=== PATIENT | male | born 1970 | race Caucasian/White ===

== ENCOUNTER → 2019-10-27 15:29 | Outpatient (BNVA) | payer MEDICARE, SELFPAY | PROVIDERS: Family Provider Nurse Practitioner; PCP Nurse Practitioner; Visit Provider Nurse Practitioner | DX: E78.5 Hyperlipidemia, unspecified (principal); I10 Essential (primary) hypertension; Z98.890 Other specified postprocedural states; F41.9 Anxiety disorder, unspecified; K21.9 Gastro-esophageal reflux disease without esophagitis; J41.0 Simple chronic bronchitis; G47.00 Insomnia, unspecified | CPT/HCPCS: 80053; 80061 ==

== ENCOUNTER → 2020-04-27 11:37 | Outpatient (BNVA) | payer MEDICARE, SELFPAY | PROVIDERS: Family Provider Nurse Practitioner; PCP Nurse Practitioner; Visit Provider Nurse Practitioner | DX: I10 Essential (primary) hypertension (principal); Z98.890 Other specified postprocedural states; G47.00 Insomnia, unspecified; K21.9 Gastro-esophageal reflux disease without esophagitis; J30.1 Allergic rhinitis due to pollen; E78.5 Hyperlipidemia, unspecified; Z12.5 Encounter for screening for malignant neoplasm of prostate | CPT/HCPCS: 80053; 80061; G0103 ==

== ENCOUNTER → 2020-08-31 09:17 | Outpatient (BNVA) | payer MEDICARE, SELFPAY | PROVIDERS: Family Provider Nurse Practitioner; PCP Nurse Practitioner; Visit Provider Nurse Practitioner | DX: Z23 Encounter for immunization (principal); I10 Essential (primary) hypertension; E78.5 Hyperlipidemia, unspecified; E55.9 Vitamin D deficiency, unspecified; F41.9 Anxiety disorder, unspecified; F32.9 Major depressive disorder, single episode, unspecified | CPT/HCPCS: 80053; 80061; 82306; 85025 ==

== ENCOUNTER → 2020-09-11 14:59 | Outpatient (BNVA) | payer MEDICARE, SELFPAY | PROVIDERS: Family Provider Nurse Practitioner; PCP Nurse Practitioner; Visit Provider Nurse Practitioner Family | DX: R19.7 Diarrhea, unspecified (principal); K57.90 Diverticulosis of intestine, part unspecified, without perforation or abscess without bleeding | CPT/HCPCS: 80053; 85025 ==

== ENCOUNTER → 2020-09-25 09:03 | Outpatient (BNVA) | payer MEDICARE, SELFPAY | PROVIDERS: Family Provider Nurse Practitioner; PCP Nurse Practitioner; Visit Provider Nurse Practitioner | DX: I10 Essential (primary) hypertension (principal); E78.5 Hyperlipidemia, unspecified; J30.1 Allergic rhinitis due to pollen; K21.9 Gastro-esophageal reflux disease without esophagitis; G47.00 Insomnia, unspecified; Z98.890 Other specified postprocedural states | CPT/HCPCS: 80053; 80061; 85025 ==

== ENCOUNTER → 2021-02-28 10:57 | Outpatient (BNVA) | payer MEDICARE, SELFPAY | PROVIDERS: Family Provider Nurse Practitioner; PCP Nurse Practitioner; Visit Provider Nurse Practitioner Family | DX: E55.9 Vitamin D deficiency, unspecified (principal); I10 Essential (primary) hypertension; F51.01 Primary insomnia; K57.92 Diverticulitis of intestine, part unspecified, without perforation or abscess without bleeding; E78.5 Hyperlipidemia, unspecified | CPT/HCPCS: 80053; 80061; 82306; 84443; 85025 ==

== ENCOUNTER 2021-05-05 08:06 | Emergency (ER) | payer MEDICARE, SELFPAY ==
[2021-05-05 08:11] VITALS: PULSE 92; RESP 14; TEMP 36.6; O2SAT 95; BMI 42.2
--- NOTE | 2021-05-05 08:14 | XRR_ITS ---
PROCEDURE INFORMATION: Exam: XR Left Knee Exam date and time: 05/05/2021 8:14 AM Age: 51 years old Clinical indication: Pain; Left; Patient HX: [place] pop in knee when climbing ladder TECHNIQUE: Imaging protocol: XR Left knee. Views: 3 views. COMPARISON: No relevant prior studies available. FINDINGS: Bones/joints: Old smoothly marginated Harini Schlatter ossicle is noted anterior to the tibial tuberosity. There is a small knee joint effusion. No lipohemarthrosis. No acute fracture or dislocation. No chondrocalcinosis. No significant degenerative changes. Soft tissues: There is mild induration of Hoffa's fat pad. XR/XR knee LT 3V* [id number] IMPRESSION: There is a small knee joint effusion and mild soft tissue edema. No acute bony abnormality.
[2021-05-05 08:17] VITALS: BP 152/98; PULSE 98; RESP 15; O2SAT 95
[2021-05-05] MEDS: HYDROcodone-acetaminophen 5-325 mg Tablet 1 TAB PO (08:42)
[2021-05-05] MEDS: ketorolac 30 mg/mL INJ 60 MG IM (08:42)
--- NOTE | 2021-05-05 08:50 | ED_ITS ---
HPI - Extremity Problem General: Chief complaint: Extremity Injury, Lower Stated complaint: left knee pain Time Seen by Provider: 05/05/21 08:14 History of Present Illness: HPI Narrative: 51-year-old male presents emergency room complaining of left knee pain he twisted the knee while standing on it he felt a popping-like sensation has a difficult time bearing weight since. No previous injury to the knee. No injury to the left ankle or left hip. He did not fall. This occurred last night. MD Complaint: joint swelling and joint pain Onset (ago): hour(s) Pain Consistency: constant Location: left Quality: aching and constant Radiation: none Relieving factors: immobilization and rest Exacerbating factors: range of motion, weight bearing and palpation Associated symptoms: Deny arthralgias, chest pain, fever(s), myalgias, rash or short of breath Review of Systems Const: Denies: fever(s) ENMT: Denies: throat pain, ear or mastoid pain, nasal discharge or nasal congestion Card: Denies: chest pain Resp: Denies: dyspnea, productive cough or non-productive cough GI: Denies: abdominal pain, nausea, vomiting, hematemesis, coffee ground emesis, diarrhea, constipation, bloating, hematochezia or melena : Denies: flank pain, dysuria, urinary frequency or urinary urgency Skin/Breast: Denies: rash PFSH ED 2 PFSH: Medical History Acid reflux disease Anxiety and depression Current smoker Dyslipidemia Essential (primary) hypertension Insomnia Lumbar radicular pain Seasonal allergic rhinitis due to pollen Vitamin D insufficiency Surgical History History of cholecystectomy 2008 History of colonoscopy 2017 History of hernia repair Bilateral as a child History of shoulder surgery right History of spinal fusion L4-L5 2000 Family History Mother Hypertension Social History Smoking and tobacco status: current every day smoker Second hand smoke exposure: Yes Smoking risk assessment/counseling performed?: Yes Alcohol intake: unknown Desire information about alcohol rehabilitation?: No Counseling given: No Desire information about substance/drug rehabilitation?: No Counseling given: No Adopted: No Caregiver/support person: No Lives independently: Yes Household members: family Housing: House Marital status: Number of children: 2 service: No Current occupational status: disabled History of recent travel: No Current gender identity: Male Physical Exam Const: COMMON NORMALS: no acute distress GENERAL APPEARANCE: cooperative and comfortable ORIENTATION/CONSCIOUSNESS: Yes awake, Yes oriented to person, Yes oriented to place and Yes oriented to time Neck/C-Spine: COMMON NORMALS: no JVD Resp: COMMON NORMALS: normal respiratory effort, No retractions, No use of accessory muscles and clear to auscultation bilaterally AUSCULTATION: clear to auscultation bilaterally Cardio: COMMON NORMALS: no JVD, regular rate, regular rhythm and No murmurs present (Cardio) RATE: regular rate RHYTHM: regular rhythm Extremity: COMMON NORMALS: normal to inspection, capillary refill normal, no clubbing, cyanosis or edema, no calf tenderness and no pedal edema NARRATIVE EXTREMITY EXAM: Moderate joint effusion. Difficult to assess knee due to pain. No pain or discomfort or swelling at the left ankle or left hip. Very limited exam of the knee due to pain. Neuro: SENSORIUM/ORIENTATION: Yes oriented to person, Yes oriented to place and Yes oriented to time Skin: COMMON NORMALS: no rashes or lesions noted GENERAL SKIN EXAM: no rashes or lesions noted Course Vital Signs: Vital signs: Vital Signs Temperature 98 F 05/05/21 08:11 Pulse Rate 98 05/05/21 08:17 Respiratory Rate 15 05/05/21 08:17 Blood Pressure 152/98 05/05/21 08:17 Pulse Oximetry 95 05/05/21 08:17 MDM - Extremity (Nontraumatic) MDM Narrative: Medical decision making narrative: X-ray shows what appears to be an old proximal fibula fracture does not appear to be acute but it is angulated as if there is a previous fracture and it heals slightly out of alignment I do not appreciate a tibial plateau fracture. Radiology overread pending. Commend he follow-up with his primary care within the next week to reevaluate. If still causing issues he may need to have advanced imaging such as an MRI. Discussed this with the patient. Discharge Plan Discharge Patient Disposition: Home Clinical Impression: Knee sprain Condition: Stable Prescriptions: New hydrocodone-acetaminophen 5-325 mg tablet 1 tab PO Q6H PRN (Reason: pain) Qty: 20 RF: 0 diclofenac sodium 75 mg tablet,delayed release (DR/EC) 75 mg PO Q12H PRN (Reason: pain) Qty: 20 RF: 0 No Action aspirin 325 mg tablet 325 mg PO BID RF: 0 Daily Probiotic 2.5 billion cell capsule See Rx Instructions PO DAILY 30 Days Qty: 30 RF: 11 fluticasone propionate [Flonase Allergy Relief] 50 mcg/actuation spray,suspension 1 spray INTRANASAL BID Qty: 48 RF: 1 ciprofloxacin HCl [Cipro] 500 mg tablet 500 mg PO BID 10 Days Qty: 20 RF: 0 metronidazole [Flagyl] 500 mg tablet 500 mg PO TID 10 Days Qty: 30 RF: 0 zolpidem 10 mg tablet 10 mg PO .at bedtime Qty: 30 RF: 5 cholecalciferol (vitamin D3) 50 mcg (2,000 unit) capsule 50 mcg PO DAILY Qty: 90 RF: 4 fenofibrate nanocrystallized 145 mg tablet See Rx Instructions .ROUTE .COMPLEX Qty: 90 RF: 0 lisinopril-hydrochlorothiazide 10-12.5 mg tablet 1 tab PO DAILY Qty: 90 RF: 1 omeprazole 20 mg capsule,delayed release(DR/EC) 20 mg PO DAILY Qty: 90 RF: 0 Discharge Orders: Discharge ED (Routine); Ordered 05/05/21 Ordered By: Suraj Doty Referrals: Ronen Mccrary, LOAF COUNTERShoshanaC [Primary Care Provider] - Patient Instructions: Opioid Safety Coding Level of Care Code ED Glass Unloading Equipment Tender for Niya Fwd Exam Detailed
== END 2021-05-05 09:30 | disposition home or self-care (01) ==
PROVIDERS: Emergency Provider Family Medicine; PCP Nurse Practitioner
DX: S83.92XA Sprain of unspecified site of left knee, initial encounter (principal); I10 Essential (primary) hypertension; E78.5 Hyperlipidemia, unspecified; F17.200 Nicotine dependence, unspecified, uncomplicated; X50.1XXA Overexertion from prolonged static or awkward postures, initial encounter
CPT/HCPCS: 29530; 73562; 96372; 99283; J1885

== ENCOUNTER → 2021-05-08 14:12 | Outpatient (BNVA) | payer MEDICARE, SELFPAY | PROVIDERS: PCP Nurse Practitioner; Visit Provider Nurse Practitioner Family | DX: M25.562 Pain in left knee (principal); I10 Essential (primary) hypertension; E78.5 Hyperlipidemia, unspecified | CPT/HCPCS: 80053; 80061; 85025 ==

== ENCOUNTER 2021-05-30 07:32 | Outpatient (CLI) | payer MEDICARE, SELFPAY ==
--- NOTE | 2021-05-30 08:00 | MR_ITS ---
WS: [id number] MRI LEFT KNEE HISTORY: M25.562 - Pain in left knee COMPARISON: Knee radiographs 05/05/2021 Anterior cruciate ligament: Intact. Posterior cruciate ligament: Intact. Medial collateral ligament: Increased fluid and irregularity involving the distal MCL. Suspect partia l tear. There is slight separation from the medial tibial metaphysis and increase fluid. No full-thic kness tear. Posterior lateral corner structures: Intact. Medial menisci: Horizontal tear in the posterior horn. Tear extends to the inferior articular surface . There is also a tear at the free edge towards the intercondylar notch with extension of abnormal si gnal extending into the meniscal root. The anterior horn is partially extruded from the joint space. Lateral meniscus: Intact. Normal signal, size and shape. Extensor mechanism: Distal quadriceps tendon and patellar tendons are intact. Fluid and soft tissue: No joint effusion. Moderate-sized lobulated Burgess's cyst. Osseous and articular structures: Patellofemoral compartment: Normal. Medial compartment: Very mild narrowing of the medial compartment. Superficial defects within the car tilage of the femoral condyle and tibial plateau closely associated with the meniscal tear. Lateral compartment: Normal. MR/MR knee LT wo con* [id number] IMPRESSION: 1. Horizontal tear posterior horn medial meniscus with a tear extending to inv olve the medial free edge and extending into the meniscal root. 2. Additional superficial cartilaginous injury in the medial compartment at th e site of the meniscal tear. 3. Mild MCL sprain. 4. Lobulated Burgess's cyst.
== END 2021-05-30 07:33 | disposition home or self-care (01) ==
PROVIDERS: PCP Nurse Practitioner; Visit Provider Nurse Practitioner Family
DX: S83.242A Other tear of medial meniscus, current injury, left knee, initial encounter (principal); S83.412A Sprain of medial collateral ligament of left knee, initial encounter; M71.22 Synovial cyst of popliteal space [Baker], left knee; X58.XXXA Exposure to other specified factors, initial encounter
CPT/HCPCS: 73721

== ENCOUNTER → 2021-06-04 08:06 | Outpatient (BNVA) | payer MEDICARE, SELFPAY | PROVIDERS: PCP Nurse Practitioner; Referring Provider Nurse Practitioner Family; Visit Provider Specialist | DX: M25.562 Pain in left knee (principal) | CPT/HCPCS: 73560; 73565 ==

== ENCOUNTER → 2021-06-11 08:49 | Outpatient (BNVA) | payer MEDICARE, SELFPAY | PROVIDERS: PCP Nurse Practitioner; Visit Provider Specialist | DX: Z20.822 Contact with and (suspected) exposure to COVID-19 (principal); S83.207A Unspecified tear of unspecified meniscus, current injury, left knee, initial encounter; Z01.812 Encounter for preprocedural laboratory examination | CPT/HCPCS: 87635 ==

== ENCOUNTER 2021-06-15 11:03 | Day surgery (SDC) | payer MEDICARE, SELFPAY ==
[2021-06-14 15:24] VITALS: BMI 41.4
[2021-06-15] VITALS (8 sets, daily range): BP systolic 112–138; BP diastolic 72–113; PULSE 75–86; RESP 16–19; TEMP 36.2–36.8; O2SAT 93–96
--- NOTE | 2021-06-15 11:52 | W.PM.OPSUD ---
Surgery/Procedure H&P Update DATE OF PROCEDURE: June 15, 2021 DATE H&P PERFORMED: 06/04/21 PREOP DIAGNOSIS: Left knee medial meniscal tear with cartilaginous injury and MCL sprain PLANNED PROCEDURE: Operation Date: 06/15/21 12:30 Proposed Procedures p Knee Arthroscopy with partial medial menisectomy and debridement 15896(Left) - Becca Merrill MD Related Problem List Diagnoses (1) Acute meniscal tear of left knee: Qualifiers: Encounter type: initial encounter Qualified Code(s): S83.207A - Unspecified tear of unspecified meniscus, current injury, left knee, initial encounter
[2021-06-15] MEDS: acetaminophen 1,000 MG/100 ML PIGGYBACK 400 MG IV (12:30)
[2021-06-15] MEDS: CELEcoxib 200 mg Capsule 400 MG PO (12:30)
[2021-06-15] MEDS: sodium chloride 0.9% 1,000 ML 30 ML IV (12:30)
--- NOTE | 2021-06-15 13:05 | ANES.PREANE2 ---
Pre-Anesthetic Assessment Pre-Anesthetic Assessment: Height/Weight: Height 1.85 m Weight 142.428 kg Temp Pulse Resp BP Pulse Ox 97.1 F L 85 18 138/113 94 06/15/21 11:55 06/15/21 11:55 06/15/21 11:55 06/15/21 11:55 06/15/21 11:55 Preop Diagnosis: Left knee medial meniscal tear with cartilaginous injury and MCL sprain Proposed Procedure: Operation Date: 06/15/21 12:30 Proposed Procedures p Knee Arthroscopy with partial medial menisectomy and debridement 99103(Left) - Becca Merrill MD Was Beta Brittany taken within 24 hours: N/A Was Clonidine taken within 24 hours: N/A Last intake: Intake Last Liquid Date 06/14/21 Last Liquid Time 21:00 Last Solid Date 06/14/21 Last Solid Time 21:00 Last Intake: 11:00 Social: Social History: Tobacco and No alcohol Packs per day: 1 Pack years: 25 Exam: Pre-Anes Outpt Exam: alert, oriented x 3, clear to auscultation bilaterally and regular rate & rhythm Airway: Submandibular: WNL Cervical ROM: WNL MP: 2 History/ROS: No significant complaints Pulmonary: Pulmonary: None reported CV/HEM: CV/HEM: HTN : : None reported Hepatic: Hepatic: None reported GI: GI: None reported Metabolic: Metabolic: None reported Musc/skel: Musc/skel: None reported Neuropsych: Neuropsych: Anxiety and Depression Anesthetic Plan: ASA status: 3 Anesthesia: General Risk of > 500 ml blood loss (7ml/kg in children): No PFSH Anesthesia PFSH: Medical History (Updated 06/04/21 @ 13:21 by Becca Merrill MD) Acid reflux disease Anxiety and depression Current smoker Dyslipidemia Essential (primary) hypertension Insomnia Lumbar radicular pain Seasonal allergic rhinitis due to pollen Vitamin D insufficiency Surgical History History of cholecystectomy 2008 History of colonoscopy 2017 History of hernia repair Bilateral as a child History of shoulder surgery right History of spinal fusion L4-L5 2000 Family History Mother Hypertension Social History Smoking and tobacco status: current every day smoker Second hand smoke exposure: Yes Smoking risk assessment/counseling performed?: Yes Alcohol intake: unknown Desire information about alcohol rehabilitation?: No Counseling given: No Desire information about substance/drug rehabilitation?: No Counseling given: No Adopted: No Caregiver/support person: No Lives independently: Yes Household members: family Housing: House Marital status: Number of children: 2 service: No Current occupational status: disabled History of recent travel: No Current gender identity: Male Data Anesthesia Cardiac Studies: No Data to Display
[2021-06-15] MEDS: midazolam 1 mg/mL INJ 2 mL 2 MG IVP (13:40)
[2021-06-15] MEDS: morphine 4 mg/mL SDV 1 mL XX ×2 (14:29)
--- NOTE | 2021-06-15 15:42 | P.OP_ITS ---
Operative Report Date of procedure: June 15, 2021 Pre-op Diagnosis: Left knee medial meniscal tear with degenerative osteoarthritic change Post-op Diagnosis: Left knee medial and lateral meniscal tears with degenerative osteoarthritic change primarily medial compartment and patellofemoral Procedure Done: Left arthroscopic knee surgery with partial medial and lateral meniscectomies. 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 Medial and lateral meniscal tears Condition: stable Disposition: PACU (Then to same-day surgery for discharge to home) Brief History: This 51-year-old gentleman presented with rather acute onset of left knee pain. He had an MRI which demonstrated irregularity of the medial meniscus. He also had degenerative osteoarthritic change. After discussion, the patient wished to proceed with operative intervention in the form of an arthroscopic debridement. Risks and complications as well as benefits were discussed with him. Consents were signed and questions were answered preoperatively. Procedure: Patient was brought to the operating theater and after undergoing adequate general anesthesia per LMA, ASA 3, the patient's left lower extremity was p repped and draped in usual fashion utilizing DuraPrep. A tourniquet was placed high on the leg prior to prepping and draping. The tourniquet was elevated prior to commencement of the surgical procedure to 250 mmHg. Total tourniquet time was 52 minutes. Elevation followed prepping and exsanguination. Prior to commencement of the surgical procedure, a surgical pause was performed. At the time of the surgical pause, we identified the site and side of surgery. We also confirm the patient's identity and appropriate and timely administration of preoperative antibiotics, Ancef 2 g. Preoperative surgical markings were also visualized at this time. Standard arthroscopic portals were utilized including superolateral, inferomedial, and inferolateral portals. The examination commenced in the suprapatellar pouch area where the patient was noted to have chondromalacia of the significant degree of the trochlear groove. The arthroscope was then passed in the medial compartment where there was noted to be degenerative tearing of the medial meniscus including the anterior and posterior horns. Additionally, there was copious synovitis precluding good visualization until it was debrided. The arthroscope was then passed across the notch area where anterior cruciate ligament was visualized and found to be intact. The scope was passed into the lateral compartment with the knee in a [id number] position. Lateral meniscus was noted to have inner rim tearing, and changes consistent with degenerative tearing. There was also slight chondromalacia of the lateral tibial plateau. The meniscus was addressed with a combination of basket forceps, the intra-articular shaver, and the heat wand. In this manner, we were able to debride the inner rim of the meniscus. Once lateral meniscus had been thus prepared it was palpated and found to be intact and not displaceable into the knee joint. Scope was then returned to the medial compartment where similarly, the medial meniscus was addressed with the heat wand and the intra- articular shaver. The meniscus was palpated and found to be not displaceable into the knee joint. A chondroplasty was performed of the medial femoral cond yle using the shaver and heat wand as well. The arthroscope was then returned to the patellofemoral joint where a chondroplasty was performed of the trochlear groove, and synovectomy was accomplished in the suprapatellar pouch. This chondroplasty involved use of the intra-articular shaver as well as the heat wand. Once the trochlea had been addressed, the scope was passed back through the knee compartments to evaluate for other abnormalities. Finding none, attention was directed to closure. The knee was copiously irrigated and suctioned dry. Following this, each portal was closed with a simple suture followed by Dermabond and Tegaderm. Additionally, the knee was injected with 20 mL of half percent ropivacaine and 8 mg of morphine. Additional 10 mL of ropivacaine was placed about the portals. Sterile dressing was placed consisting of Dermabond, Steri-Strips, OpSite, 4 x 4's, and an Giovanny wrap. Patient was returned to Recovery Room in satisfactory condition where he will be discharged home to follow-up with me in the office as scheduled. There were no complications and no specimens. Associated Problem List Diagnoses (1) Acute meniscal tear of left knee: Qualifiers: Encounter type: initial encounter Qualified Code(s): S83.207A - Unspecified tear of unspecified meniscus, current injury, left knee, initial encounter (2) Primary osteoarthritis of left knee: (3) Acute lateral meniscus tear of left knee: Qualifiers: Encounter type: initial encounter Qualified Code(s): S83.282A - Other tear of lateral meniscus, current injury, left knee, initial encounter
--- NOTE | 2021-06-15 15:59 | ANE.PACU2 ---
Inpatient post-anesthesia follow up: Airway intact: Yes Vital signs: Temperature 98.2 F Pulse Rate 86 Respiratory Rate 18 Blood Pressure 116/92 Pulse Oximetry 94 Oxygen Delivery Me thod Room Air Oxygen Flow Rate Fraction of Inspir ed Oxygen Hydration adequate: Yes Nausea and vomiting: No Pain level: 2 Mental status: Baseline
== END 2021-06-15 16:18 | disposition home or self-care (01) ==
PROVIDERS: PCP Nurse Practitioner; Visit Provider Specialist
PROC: (CPT 29870; principal; 2021-06-15 12:30)
DX: S83.242A Other tear of medial meniscus, current injury, left knee, initial encounter (principal); S83.282A Other tear of lateral meniscus, current injury, left knee, initial encounter; W22.8XXA Striking against or struck by other objects, initial encounter; M17.12 Unilateral primary osteoarthritis, left knee; I10 Essential (primary) hypertension; F41.9 Anxiety disorder, unspecified; F32.9 Major depressive disorder, single episode, unspecified; K21.9 Gastro-esophageal reflux disease without esophagitis; F17.210 Nicotine dependence, cigarettes, uncomplicated; E78.5 Hyperlipidemia, unspecified
CPT/HCPCS: 29880; 96365; J0690; J2250; J2270; J2405; J2704; J2795; J3010; J7030

== ENCOUNTER → 2021-11-07 16:07 | Outpatient (BNVA) | payer MEDICARE, SELFPAY | PROVIDERS: PCP Nurse Practitioner; Visit Provider Nurse Practitioner Family | DX: E78.5 Hyperlipidemia, unspecified; E55.9 Vitamin D deficiency, unspecified | CPT/HCPCS: 80053; 80061; 82306; 85025 ==

== ENCOUNTER → 2021-12-11 09:38 | Outpatient (BNVA) | payer MEDICARE, SELFPAY | PROVIDERS: PCP Nurse Practitioner Family; Visit Provider Nurse Practitioner Family | DX: J40 Bronchitis, not specified as acute or chronic (principal) | CPT/HCPCS: 71046; 80053; 85025; 86769 ==

== ENCOUNTER → 2022-01-03 09:48 | Outpatient (BNVA) | payer MEDICARE, SELFPAY | PROVIDERS: PCP Nurse Practitioner Family; Visit Provider Nurse Practitioner Family | DX: J40 Bronchitis, not specified as acute or chronic (principal) | CPT/HCPCS: 71046 ==

== ENCOUNTER → 2022-05-13 12:35 | Outpatient (BNVA) | payer MEDICARE, SELFPAY | PROVIDERS: PCP Nurse Practitioner Family; Visit Provider Internal Medicine Pulmonary Disease | DX: R06.09 Other forms of dyspnea (principal); U09.9 Post COVID-19 condition, unspecified; Z12.2 Encounter for screening for malignant neoplasm of respiratory organs; Z87.891 Personal history of nicotine dependence; R53.81 Other malaise | CPT/HCPCS: 99204 ==

== ENCOUNTER 2022-05-30 07:11 | Outpatient (CLI) | payer MEDICARE, SELFPAY ==
--- NOTE | 2022-05-30 14:18 | PFTS_ITS ---
Date of Study:05/30/22 Date of Dictation: MECHANICS: Forced vital capacity (FVC) is reduced. Forced expiratory volume in one second (FEV1) is reduced. FEV1/FVC is normal. FLOW VOLUME LOOP: Normal. LUNG VOLUMES: Total lung capacity (TLC) is reduced. Residual volume (RV) is reduced. DIFFUSING CAPACITY FOR CARBON MONOXIDE: Normal. INTERPRETATION: The postbronchodilator spirometry is consistent with mild restriction. There is no significant postbronchodilator response. The lung volumes are consistent with restrictive lung disease. Gas exchange (DLCO) is mildly reduced. MTDD
== END 2022-05-30 07:12 | disposition home or self-care (01) ==
PROVIDERS: PCP Nurse Practitioner Family; Visit Provider Internal Medicine Pulmonary Disease
DX: U09.9 Post COVID-19 condition, unspecified (principal); R06.09 Other forms of dyspnea
CPT/HCPCS: 94060; 94618; 94726; 94729; J7611

== ENCOUNTER 2022-06-04 08:17 | Outpatient (CLI) | payer MEDICARE, SELFPAY ==
--- NOTE | 2022-06-04 09:30 | CT_ITS ---
WS: [id number] LDCT LUNG CANCER SCREENING TECHNIQUE: Noncontrast CT of the chest with coronal and sagittal reformatted images. CLINICAL INFORMATION: lung screening COMPARISON: CTA 7 DLP: 75.32 mGy.cm DIvol: Mean CTDIvol: 1.60 (mGy) All CT scans at [facility] use at least one of these dose optimization techniques: automat ed exposure control; mA and/or kV adjustment per patient size (includes targeted exams where dose is matched to clinical indication); or iterative reconstruction. FINDINGS: No acute pulmonary infiltrates. Lungs are well aerated. Normal caliber thoracic aorta. No m ediastinal or hilar lymphadenopathy. Normal GE junction. Splenic granulomas. 2.0 cm LEFT adrenal nasim leonor. No axillary lymphadenopathy. Prior cholecystectomy. Fatty infiltration the liver. Thoracic kyphosis. Spondylitic changes thoracic spine. CT/CT lung screening [id number] IMPRESSION: LUNG-RADS: 1-Negative FOLLOW UP: 12 Month: Continue annual screening with LDCT
== END 2022-06-04 08:18 | disposition home or self-care (01) ==
LOC: RAD 08:17
PROVIDERS: PCP Nurse Practitioner Family; Visit Provider Internal Medicine Pulmonary Disease
DX: Z12.2 Encounter for screening for malignant neoplasm of respiratory organs (principal); Z87.891 Personal history of nicotine dependence
CPT/HCPCS: 71271

== ENCOUNTER 2022-06-07 07:22 | Outpatient (CLI) | payer MEDICARE, SELFPAY ==
--- NOTE | 2022-06-07 | ECG_ITS ---
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 Interpretive Statements NAME OF STUDY: LEXISCAN SESTAMIBI STRESS TEST INDICATION: Chest Pain; Shortness of Breath, PROCEDURE: At the baseline, the EKG revealed normal sinus rhythm with a poor R wave progression. The baseline heart was 91 bpm with a blood pressue of 133/94 mm of Hg Lexiscan was infused over a period of 20 seconds. A total of 0.4 milligrams of Lexiscan was infused. The stress phase was continued for a total of 5 minutes. Heart rate at the end of the stress phase was 101 bpm with a blood pressure 125/94. The EKG at the peak infusion revealed no significant changes. Sestamibi was injected 20 seconds after the Lexiscan infusion. Heart rate at the end of the recovery phase was 103 bpm with a blood pressure of 123/87 mm of Hg. CONCLUSION: 1. No significant EKG changes with the LexiScan infusion 2. No LexiScan induced chest pain or cardiac arrhythmia 3. Normal blood pressure and heart rate response 4. Sestamibi/sestamibi perfusion scan pending; see separate report. Electronically Signed On 06-07-2022 16:12:29 CDT by More Taylor M.D. [email or web address]
[2022-06-07 07:47] VITALS: BMI 47.5
--- NOTE | 2022-06-07 07:52 | NMCV_ITS ---
NM jairo perf SPECT r/s* [id number] Anthony Paris Age: 52 Gender: M : 1970 Exam Date: 06/07/2022 08:43 Ordering Phys: Deo Rachel MD Technologist: MARYCHUY Gomez Exam Location: [facility] Indications: CHEST PAIN SHORTNESS OF BREATH STRESS TEST Please see separate stress test report in [facility] for full findings IMAGE PROTOCOL Rest/Stress 1 Lexiscan Day Radiopharmaceutical Dose (mCi) Administration Site Administered by Rest: Tc-99m 11.0 IV MARYCHUY Gomez Sestamibi Stress:Tc-99m 33.0 IV MARYCHUY Solis Sestamibi Rest: 07-Jun-2022 60 Discovery 630 Stress: 07-Jun-2022 30 Discovery 630 0.4mg Lexiscan. Images obtained in supine and prone position. SPECT RESULTS Technical Quality: Excellent Raw Data Analysis: Normal Image Corrections: No attenuation or motion correction applied Summed Stress Score: 3 Summed Rest Score: 2 Summed Difference Score: 1 PERFUSION FINDINGS Small area of decreased visibility was noted in the mid inferolateral and apical lateral region with a subtle area of reversibility in the inferolateral region, only with the supine imaging FUNCTIONAL RESULTS (calculated via Gated SPECT) Stress Image LV EF (%): 62 Stress EDV (mL):116 TID: 1.11 Stress ESV (mL):44 FUNCTIONAL FINDINGS: Segmental wall motion analysis revealing no gross wall motion abnormalities. IMPRESSIONS 1. Myocardial perfusion imaging revealing a small area of decreased H uptake in the inferolateral and apical region with a subtle area of inconsistent reversibility, may suggest ischemia in the distribution of the left circumflex artery. However because of the inconsistency, the reliability is very low. 2. Normal LV ejection fraction 62%. 3. LV wall motion analysis revealing no gross wall motion abnormalities. 4. Near normal LV volume. No similar previous studies are available for comparison just Dr More Taylor MD [facility] (Electronically Signed) Final Date: 10 June 2022 10:01 S
[2022-06-07 09:43] VITALS: BP 123/87; PULSE 100
[2022-06-07] MEDS: regadenoson 0.4 Mg/5 ml Syringe IVP (09:43)
== END 2022-06-07 07:23 | disposition home or self-care (01) ==
LOC: CDL 07:23
PROVIDERS: PCP Nurse Practitioner Family; Visit Provider Internal Medicine Pulmonary Disease
DX: R07.9 Chest pain, unspecified (principal); R06.09 Other forms of dyspnea
CPT/HCPCS: 78452; 93017; A9500; J2785

== ENCOUNTER → 2022-07-03 09:41 | Outpatient (BNVA) | payer MEDICARE, SELFPAY | PROVIDERS: PCP Nurse Practitioner Family; Visit Provider Nurse Practitioner Family | DX: E55.9 Vitamin D deficiency, unspecified (principal); I10 Essential (primary) hypertension; K21.9 Gastro-esophageal reflux disease without esophagitis; Z12.5 Encounter for screening for malignant neoplasm of prostate | CPT/HCPCS: 80053; 80061; 82306; 85025; G0103 ==

== ENCOUNTER → 2022-07-31 12:51 | Outpatient (BNVA) | payer MEDICARE, SELFPAY | PROVIDERS: PCP Nurse Practitioner Family; Visit Provider Internal Medicine | DX: R06.09 Other forms of dyspnea (principal); R07.9 Chest pain, unspecified; R94.39 Abnormal result of other cardiovascular function study; E78.5 Hyperlipidemia, unspecified; Z87.891 Personal history of nicotine dependence | CPT/HCPCS: 93005; 99204 ==

== ENCOUNTER → 2022-10-18 10:24 | Outpatient (BNVA) | payer MEDICARE, SELFPAY | PROVIDERS: PCP Nurse Practitioner Family; Visit Provider Internal Medicine | DX: R06.09 Other forms of dyspnea (principal); R07.9 Chest pain, unspecified; R94.39 Abnormal result of other cardiovascular function study; E78.5 Hyperlipidemia, unspecified; Z87.891 Personal history of nicotine dependence | CPT/HCPCS: 99214 ==

== ENCOUNTER → 2022-10-30 09:50 | Outpatient (BNVA) | payer MEDICARE, SELFPAY | PROVIDERS: PCP Nurse Practitioner Family; Visit Provider Internal Medicine | DX: I10 Essential (primary) hypertension (principal); R07.9 Chest pain, unspecified; R06.09 Other forms of dyspnea; K57.92 Diverticulitis of intestine, part unspecified, without perforation or abscess without bleeding; R94.39 Abnormal result of other cardiovascular function study | CPT/HCPCS: 80048; 83880; 85025; 85610 ==

== ENCOUNTER 2022-11-04 08:43 | Outpatient (CLI) | payer MEDICARE, SELFPAY ==
[2022-11-04] VITALS (13 sets, daily range): BP systolic 100–130; BP diastolic 73–94; PULSE 82–104; RESP 15–22; TEMP 36.5; O2SAT 92–97; BMI 48.7
[2022-11-04] MEDS: aspirin 325 mg Tablet PO (09:16)
[2022-11-04] MEDS: diphenhydrAMINE 50 mg Capsule PO (09:16)
--- NOTE | 2022-11-04 10:00 | XACV_ITS ---
Exam Room: 2 Ht: 183 cm Wt: 154 kg BSA: 2.87 m2 Gender: Male : 1970 Any Known Allergies: No known allergies Exam Priority: Routine Procedure(s): Procedure Description: Diagnostic procedure Procedure Description: Left Heart Catheterization Procedure Description: Left ventriculography Procedure Description: Coronary Angiography Diagnostic Cath Status: Elective Diagnostic Findings * INDICATION: Chest pain/abnormal stress test. * No significant disease noted in the Left Main, Left Anterior Descending, Right, or Circumflex coronary arteries. * Coronary angiography shows right dominance. Conclusions 1. No significant disease noted in the Left Main, Left Anterior Descending, Right, or Circumflex coronary arteries. 2. Normal left ventricular systolic function. Ejection fraction of 60%. Recommendations * Aggressive risk factor modification. * Symptoms likely secondary to microvascular dysfunction as patient gets relief with nitroglycerine. We will start low dose Isosorbide mononitrate. * Low dose lasix. * Outpatient cardiology follow up in 4 weeks. Interventional RX Recommendation: medical therapy and/or counseling Diagnostic RX Recommendation: medical therapy and/or counseling Anticoagulation: Heparin Ventriculography Ejection Fraction: 60.0 % Pressures Phase:Rest AO : 131 / 76 ( 87 ) @ 11:03:00 AM 122 / 75 ( 89 ) @ 11:11:00 AM 124 / 71 ( 89 ) @ 11:11:00 AM LV : 146 / -3 / 20 @ 11:10:00 AM 148 / -9 / 20 @ 11:11:00 AM 151 / -4 / 23 @ 11:11:00 AM Valves Phase:DefaultPhase AV : 29.0 @ 11:17:39 AM 29.0 @ 11:17:39 AM AV Mean Gradient: 20.0 @ 11:17:39 AM 20.0 @ 11:17:39 AM Clinical Evaluation EBL: 5mL-10mL Procedural Details Procedure Consent Obtained. Admit Source: Out Patient. Pre-Procedure Time Out. Identified patient by full name and date of as verbalized by the patient/guarantor. Does the consent match the physician's order: Yes. Accurate & Complete Informed Consent: Yes. Inpatient/Outpatient History & Physical on Chart: Yes. If H&P is completed, is and addenduem needed: No; If yes, is the addendum complete: N/A. Visualize and Verify Site with Patient/Guarantor: N/A. The risks, benefits, and alternatives of sedation and/or procedure were discussed by physician. The patient agrees to continue. Procedure started. [facility] Clinical Fraility Score: 3: Managing Well. Buckle Inspector Indications: Worsening Angina. Chest Pain Symptom Assessment: Typical Angina Symptoms. Correct patient, site and procedure confirmed by cath team. Current diagnosis: Chest Pain, Abnormal Stress test. PERRLA. 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 Lungs clear x 5 lobes. IV Site on Arrival: 20 gauge in the left anticubital. IV Fluids: 0.9% NaCl at 75ml/hr. 0 mL infused prior to manager cardiac cath. Pre Procedural Pulses: right radial was 2+. Pre Procedural Pulses: bilateral posterior tibial was 2+. Pre Procedural Pulses: bilateral dorsalis pedis was 2+. Oxygen started at 2liters/min via nasal canula. right groin was prepped with chloroprep then draped in the usual sterile fashion. right radial was prepped with chloroprep then draped in the usual sterile fashion. Physician notified. Baseline sample Acquired. HR: 80 BPM. Physician arrived. Physician scrubbed in. Immediate Pre-Procedure Time Out. Correct Patient: Yes; Correct Procedure: Yes; Correct Site: Yes; Correct Patient Position: Yes; Correct Supplies: Yes; Dried Flammable Prep: Yes; Blood Products Available: No;. Lidocaine 1% infiltrated to the right radial. Arterial access obtained. A 6 belizean Paco catheter in over wire. Multiple views taken of left coronary artery. Catheter redirected to the RCA. Multiple views taken of right coronary artery. Catheter removed over the exchange wire. A 5 belizean JL3.5 catheter in over wire. Multiple views taken of left coronary artery. Catheter removed over the exchange wire. A 5 belizean Angled Pig catheter in over wire. Exchange wire out. EDP Sample taken: LV 146/-4,20; HR: 86 BPM; SpO2: 96%. LV gram performed in TUBBS @ 10 mL/second for a total of 30 mL. EDP Sample taken: LV 148/-10,20; HR: 95 BPM; SpO2: 93%. Pullback taken: LV 151/-5,23; AO 122/75(89); Mean: 20mmHg, Peak to Peak: 29mmHg, SEP: 20sec/min; HR: 93 BPM; SpO2: 93%. Catheter removed over the exchange wire. Physician review of cine films. A TR Band was successful obtaining hemostatsis at the Right Radial artery insertion site. Post Procedure: Pulses reassessed and unchanged. PERRLA. 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 No VTE prophylaxis required. Medication's Wasted: Nitro = 49.6 mg. Medication's Wasted: Heparin = 1000 units. Total IV fluids: 20 mL. Post-op diagnosis: Non-Obstructive CAD. Complications: None. Estimated blood loss: 5mL-10mL. Responsiveness - Normal response to verbal stimuli; alert and oriented, PERRLA. Airway - Unaffected, no intervention required; spontaneous ventilation. Circulation: W/N/L, pulses unchanged. Nausea/Vomiting: N/A. Procedure completed. Patient transferred by wheelchair to CPRU. Vital chart was stopped. Access Site Site: Right Radial artery Sheath Size: 6 Fr Hemostasis Method: TR Band Hemostasis Success: Successful Procedure Medications Start: 10:58 AM Stop: 10:58 AM Medication: Versed Amount: 1 mg Route: I.V. Start: 10:58 AM Stop: 10:58 AM Medication: Fentanyl Amount: 50 mcg Route: I.V. Start: 11:00 AM Stop: 11:00 AM Medication: Versed Amount: 1 mg Route: I.V. Start: 11:00 AM Stop: 11:00 AM Medication: Fentanyl Amount: 50 mcg Route: I.V. Start: 11:00 AM Stop: 11:00 AM Medication: Nitrogylcerin Amount: 200 mcg Route: I.A. Start: 11:01 AM Stop: 11:01 AM Medication: Heparin Amount: 5000 units Route: I.V. Start: 11:06 AM Stop: 11:06 AM Medication: Nitrogylcerin Amount: 200 mcg Route: I.A. I, the attending physician, have reviewed and verified all procedure medications. Yes, all medications given per verbal order History/Risk Factors Hypertension: Yes Dyslipidemia: Yes Peripheral Arterial Disease (PAD): No Myocardial Infarction (NM): No Obesity: No Renal Disease: No Tobacco Use: Former Prior Interventions PCI: No CABG: No Valve Surgery: No Report Signatures Finalized by Bryson Meadows MD on 11/07/2022 02:14 PM
--- NOTE | 2022-11-04 10:53 | P.HPUD_ITS ---
Surgery/Procedure H&P Update DATE OF PROCEDURE: November 04, 2022 DATE H&P PERFORMED: 10/18/22 H&P UPDATE INFORMATION: I have reviewed H&P completed within last 30 days, I have examined patient prior to procedure and No changes to prior documentation PREOP DIAGNOSIS: Chest pain/ abnormal stress test PRIMARY INDICATION FOR PROCEDURE: Chest pain/ abnormal stress test PLANNED PROCEDURE: Operation Date: 11/04/22 10:[address] [facility] [id number] ,R07.9(Left) - Bryson Meadows M.D Possible percutaneous coronary intervention PATIENT REASSESSED PRIOR TO SEDATION, WITH NO CHANGE NOTED: Yes PHYSICAL EXAM: alert, oriented x 3, clear to auscultation bilaterally and regular rate & rhythm AIRWAY EVAL/ANESTHESIA PLAN: normal airway, Local Anesthesia, Risks, benefits & alternatives of sedation and/or procedure discussed and Patient agrees to continue as planned
--- NOTE | 2022-11-04 13:25 | PC.NURSE ---
Around 1300: TR Band removed from patient right wrist. No drainage or hematoma noted. Vitals stable, no c/o pain or discomfort. Cleaned around puncture site with soap and water, covered site with band-aid. Will continue to monitor.
--- NOTE | 2022-11-04 13:54 | PC.NURSE ---
Discharge orders received. Right radial puncture site clean and dry, dsg intact. No drainage or hematoma noted. Vitals stable. IV removed. Discharge instructions given to patient. Patient verbalized understanding of all teaching. Follow-up appointments made. Discharged patient to home via wheelchair in private vehicle.
== END 2022-11-04 14:03 | disposition home or self-care (01) ==
PROVIDERS: PCP Nurse Practitioner Family; Visit Provider Internal Medicine
DX: R06.09 Other forms of dyspnea (principal); R07.9 Chest pain, unspecified; R94.39 Abnormal result of other cardiovascular function study; E78.5 Hyperlipidemia, unspecified; I10 Essential (primary) hypertension; Z87.891 Personal history of nicotine dependence; Z79.82 Long term (current) use of aspirin; K21.9 Gastro-esophageal reflux disease without esophagitis
CPT/HCPCS: 36415; 93458; 96361; 96365; 99152; C1769; C1887; C1894; J1644; J2250; J3010; J3490; J7030; Q0163; Q9967

== ENCOUNTER → 2022-11-26 09:38 | Outpatient (BNVA) | payer MEDICARE, SELFPAY | PROVIDERS: PCP Nurse Practitioner Family; Visit Provider Nurse Practitioner Family | DX: R07.9 Chest pain, unspecified (principal) | CPT/HCPCS: 36415; 80048; 99214 ==

== ENCOUNTER → 2022-12-17 10:54 | Outpatient (BNVA) | payer MEDICARE, SELFPAY | PROVIDERS: PCP Nurse Practitioner Family; Visit Provider Internal Medicine Cardiovascular Disease | DX: R07.89 Other chest pain (principal); R94.39 Abnormal result of other cardiovascular function study; Z87.891 Personal history of nicotine dependence; Z79.82 Long term (current) use of aspirin | CPT/HCPCS: 99213 ==

== ENCOUNTER → 2023-04-02 13:39 | Outpatient (BNVA) | payer MEDICARE, SELFPAY | PROVIDERS: PCP Nurse Practitioner Family; Visit Provider Nurse Practitioner Family | DX: K21.9 Gastro-esophageal reflux disease without esophagitis (principal); K57.92 Diverticulitis of intestine, part unspecified, without perforation or abscess without bleeding; E55.9 Vitamin D deficiency, unspecified; I10 Essential (primary) hypertension; R73.9 Hyperglycemia, unspecified; E78.5 Hyperlipidemia, unspecified | CPT/HCPCS: 80053; 80061; 82306; 82607; 83036; 83735; 84443; 85025 ==

== ENCOUNTER → 2023-05-08 08:28 | Outpatient (BNVA) | payer MEDICARE, SELFPAY | PROVIDERS: PCP Nurse Practitioner Family; Visit Provider Surgery | DX: K57.92 Diverticulitis of intestine, part unspecified, without perforation or abscess without bleeding (principal); K46.9 Unspecified abdominal hernia without obstruction or gangrene; R10.9 Unspecified abdominal pain | CPT/HCPCS: 99204 ==

== ENCOUNTER 2023-05-28 09:04 | Outpatient (CLI) | payer MEDICARE, SELFPAY ==
[2023-05-28] MEDS: iohexol 350 mg/mL 500 mL Btl (per mL) PO (09:47)
--- NOTE | 2023-05-28 11:00 | CT_ITS ---
WS: [id number] CT ABDOMEN AND PELVIS WITH CONTRAST HISTORY: abdominal hernia and recurrent diverticuli TECHNIQUE: Imaging performed of the abdomen and pelvis with IV contrast. Single phase imaging of the abdomen. Coronal and sagittal reformats are submitted. All CT scans at [facility] use at [address] [facility] one of these dose optimization techniques: automated exposure control; mA and/or kV adjustment per patient size (includes targeted exams where dose is matched to clinical indication); or iterative re construction. IV CONTRAST: Omnipaque 350; 100 mL IV. Oral contrast: Yes. DLP: 1255.43 mGy.cm COMPARISON: 09/11/2016 Lower thorax: Lung bases are clear. Heart is normal size. No hiatal hernia. Liver/biliary system: Normal size liver with mild hepatic steatosis. Normal portal vein. 8 mm low-att enuation mass in the superior right lobe is probably a small cyst. Too small to characterize further. Gallbladder: Prior cholecystectomy. Pancreas: Normal size pancreas and pancreatic duct. No adjacent inflammation. Spleen: Normal size with granulomata. Adrenal glands: Normal right adrenal gland. 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 Left adrenal mass has slightly increased in size now measuring 2 .6 x 2.7 and does contain macroscopic fat. Right kidney: Upper pole cyst 1.1 cm. No obstruction. Left kidney: Normal. Aorta: Mild atherosclerosis with no aneurysm. Lymphadenopathy: None. Free fluid: None. GI tract: Normal stomach. No small bowel obstruction. Normal appendix. Moderate diffuse colonic diver ticulosis. Increasing diverticular disease towards the sigmoid. No acute diverticulitis. Surgical hunter stomotic sutures are noted in the distal sigmoid. Abdominal wall: Ventral abdominal wall hernias. Marked thinning of the ventral abdominal wall with 2 small paraumbilical defects containing fat only. Pelvis: No free fluid or adenopathy within the pelvis. Inguinal canals are patent bilaterally contain ing fat only. Bones: Posterior lumbar fusion at L5-S1 with interbody spacer. IMPRESSION: 1. Diffuse moderate diverticular disease throughout the colon with greater burden in the sigmoid reg ion. No evidence for acute diverticulitis and no abscess. 2. Sigmoid anastomotic sutures are identified. No obstruction or complication at the surgical site. 3. Prior cholecystectomy. 4. Left adrenal mass previously described as an adenoma. Slight increase in size since 2016 but does contain macroscopic fat. 5. Thinning of the ventral abdominal musculature with 2 very small ventral hernias containing fat on ly.
[2023-05-28] MEDS: iohexol 350 mg/mL 500 mL Btl (per mL) IV (11:09)
== END 2023-05-28 09:05 | disposition home or self-care (01) ==
LOC: RAD 09:04
PROVIDERS: PCP Nurse Practitioner Family; Visit Provider Surgery
DX: K43.9 Ventral hernia without obstruction or gangrene (principal); K57.30 Diverticulosis of large intestine without perforation or abscess without bleeding; Z90.49 Acquired absence of other specified parts of digestive tract; E27.9 Disorder of adrenal gland, unspecified
CPT/HCPCS: 74177; Q9967

== ENCOUNTER → 2023-05-29 16:24 | Outpatient (BNVA) | payer MEDICARE, SELFPAY | PROVIDERS: PCP Nurse Practitioner Family; Visit Provider Surgery | DX: K57.92 Diverticulitis of intestine, part unspecified, without perforation or abscess without bleeding (principal) | CPT/HCPCS: 99213 ==

== ENCOUNTER → 2023-07-14 10:13 | Outpatient (BNVA) | payer MEDICARE, SELFPAY | PROVIDERS: PCP Nurse Practitioner Family; Visit Provider Internal Medicine Cardiovascular Disease | DX: R07.9 Chest pain, unspecified (principal); I10 Essential (primary) hypertension; K21.9 Gastro-esophageal reflux disease without esophagitis; E78.5 Hyperlipidemia, unspecified; Z87.891 Personal history of nicotine dependence | CPT/HCPCS: 99213 ==

== ENCOUNTER 2024-06-30 06:00 | Outpatient (CLI) | payer MEDICARE, SELFPAY | END 2024-06-30 06:01 | disposition home or self-care (01) | LOC: RAD 07-09 12:47 | PROVIDERS: PCP Nurse Practitioner Family; Visit Provider Nurse Practitioner Family | DX: E55.9 Vitamin D deficiency, unspecified (principal); Z87.891 Personal history of nicotine dependence; I10 Essential (primary) hypertension; R73.9 Hyperglycemia, unspecified; R06.09 Other forms of dyspnea; Z12.5 Encounter for screening for malignant neoplasm of prostate | CPT/HCPCS: 80053; 80061; 82306; 82607; 83036; 83880; 84443; 85025; G0103 ==

== ENCOUNTER 2024-07-12 09:22 | Outpatient (CLI) | payer MEDICARE, SELFPAY ==
--- NOTE | 2024-07-12 10:00 | CT_ITS ---
WS: [id number] LDCT LUNG CANCER SCREENING HISTORY: Z87.891 - Personal history of nicotine dependence TECHNIQUE: Axial imaging performed from the apices to 1 cm below the costophrenic angles. Coronal and sagittal reformats are submitted with axial MIP series. All CT scans at [facility] use at least one of these dose optimization techniques: automated exposure control; mA and/or kV adjustment per patient size (includes targeted exams where dose is matched to clinical indication); or iterativ e reconstruction. DLP: 164.49 mGy DIvol: 4.8 COMPARISON: None available. Diagnostic quality: Satisfactory Lungs: No pulmonary mass or nodule. No endobronchial lesions or groundglass attenuation. Mild hyperex pansion. Heart: Normal size heart with no pericardial effusion.. Other findings: Very mild atherosclerosis aorta. No mediastinal or hilar adenopathy. Small hiatal her betsey. Hepatic steatosis. Prior cholecystectomy. Long-term stability 2.8 cm LEFT adrenal mass. Degenera tive thoracic spondylosis. CT/CT lung screening [id number] IMPRESSION: LUNG-RADS: 1-Negative FOLLOW UP: 12 Month: Continue annual screening with LDCT OTHER FINDINGS (S MODIFIER): None.
== END 2024-07-12 09:23 | disposition home or self-care (01) ==
LOC: RAD 09:24
PROVIDERS: PCP Nurse Practitioner Family; Visit Provider Nurse Practitioner Family
DX: Z12.2 Encounter for screening for malignant neoplasm of respiratory organs (principal); Z87.891 Personal history of nicotine dependence; K44.9 Diaphragmatic hernia without obstruction or gangrene; K76.0 Fatty (change of) liver, not elsewhere classified; Z90.49 Acquired absence of other specified parts of digestive tract; D35.02 Benign neoplasm of left adrenal gland; M46.94 Unspecified inflammatory spondylopathy, thoracic region
CPT/HCPCS: 71271

== ENCOUNTER → 2025-01-31 11:39 | Outpatient (BNVA) | payer MEDICARE, SELFPAY | PROVIDERS: PCP Nurse Practitioner Family; Visit Provider Nurse Practitioner Family | DX: R73.03 Prediabetes (principal); R07.9 Chest pain, unspecified; I10 Essential (primary) hypertension; E66.01 Morbid (severe) obesity due to excess calories; K21.9 Gastro-esophageal reflux disease without esophagitis; K57.92 Diverticulitis of intestine, part unspecified, without perforation or abscess without bleeding; B86 Scabies | CPT/HCPCS: 80053; 80061; 83036; 85025 ==

== ENCOUNTER → 2025-06-29 11:53 | Outpatient (BNVA) | payer MEDICARE, SELFPAY | PROVIDERS: PCP Nurse Practitioner Family; Visit Provider Nurse Practitioner Family | DX: R73.03 Prediabetes (principal); R07.9 Chest pain, unspecified | CPT/HCPCS: 80053; 80061; 83036; 85025 ==

== ENCOUNTER 2025-09-22 07:17 | Outpatient (CLI) | payer MEDICARE, SELFPAY ==
--- NOTE | 2025-09-22 08:00 | CT_ITS ---
WS: [id number] LDCT LUNG CANCER SCREENING TECHNIQUE: Noncontrast CT of the chest with coronal and sagittal reformatted images. CLINICAL INFORMATION: Z87.891 - Personal history of nicotine dependence COMPARISON: Noncontrast screening CT scan of the chest 07/12/2024. DLP: 182.90 mGy.cm DIvol: Mean CTDIvol: 4.90 (mGy) All CT scans at [facility] use at least one of these dose optimization techniques: automated exposure control; mA and/or kV adjustment per patient size (includes targeted exams where dose is matched to clinical indication); or iterative reconstruction. FINDINGS: The current examination is unchanged compared to the previous study. No mediastinal or hilar adenopathy. No lung nodule or lung mass. No pleural abnormality. Normal bony thorax. CT/CT lung screening [id number] IMPRESSION: Stable examination with no significant abnormality. LUNG-RADS: 1-Negative FOLLOW UP: 12-month: Continue annual screening.
== END 2025-09-22 07:18 | disposition home or self-care (01) ==
LOC: RAD 07:18
PROVIDERS: PCP Nurse Practitioner Family; Visit Provider Nurse Practitioner Family
DX: Z12.2 Encounter for screening for malignant neoplasm of respiratory organs (principal); Z87.891 Personal history of nicotine dependence
CPT/HCPCS: 71271